=== PATIENT | female | born 1980 | race Caucasian/White ===

== ENCOUNTER 2018-02-24 13:59 | Emergency (ER) | payer MEDICAID, OTHER ==
[~2018-02-24] VITALS: Ht 165.1 cm; Wt 100.0 kg
[~2018-02-24 13:59] MED LIST: AMOX500T PO; TYLE3 PO; Z.0.BCPILL PO
[2018-02-24 14:11] VITALS: BP 139/88; PULSE 90; RESP 18; TEMP 97.9; O2SAT 100
[2018-02-24] MEDS ORDERED: ORTHTAB4 PO (14:26)
[2018-02-24] MEDS ORDERED: LIDOCAINE 1%/EPINEPHrine 1:100,000 SOLN 30 ML VIAL ONE (14:30)
[2018-02-24] MEDS ORDERED: LIDOCAINE 1%/EPINEPHrine 1:100,000 SOLN 20 ML VIAL INFIL ONE (14:30)
--- NOTE | 2018-02-24 14:37 | PD ---
HPI Chief Complaint: Injury Time Seen by Provider: 14:22 Travel History International Travel<30 days: No Contact w/Intl Traveler<30days: No Traveled to known affect area: No History of Present Illness HPI 37-year-old female presents emergency department with injury to the right little toe. Patient states she was getting into her jeep when she caught her left pinky toe causing it to possibly dislocate laterally. The patient was wearing flip-flops. Pain is now 8 out of 10. She has decreased range of motion. She denies numbness or tingling. No open wounds or abrasions noted. No significant swelling. Pain is 8 out of 10. Incident occurred 30 minutes prior to arrival. She has no known allergies. [facility] Past Medical History ?: Not Social History Alcohol Use: No Tobacco Use: Yes Substance Use: No Allergies-Medications (Allergen,Severity, Reaction): Coded Allergies: No Known Allergies (Verified Adverse Reaction, Unknown, 02/24/18) Reported Meds & Prescriptions Reported Meds & Active Scripts Active Reported Ortho Tri-Cyclen (Norgestimate-Ethinyl Estradiol) 0.18/0.215/0.25 mg-35 Mcg Tab 1 Tab PO DAILY Review of Systems Except as stated in HPI: all other systems reviewed are Neg General / Constitutional: No: Fever Eyes: No: Visual changes HENT: No: Headaches Cardiovascular: No: Chest Pain or Discomfort Respiratory: No: Shortness of Breath Gastrointestinal: No: Abdominal Pain Genitourinary: No: Dysuria Musculoskeletal: Positive: Arthralgias, Limited ROM, Pain (See history of present illness per) Skin: No Rash Neurologic: No: Weakness Psychiatric: No: Depression Endocrine: No: Polydipsia Hematologic/Lymphatic: No: Easy Bruising Physical Exam Narrative GENERAL: Patient appears in mild distress per SKIN: Warm and dry. Normal color. Normal turgor. No signs of trauma. HEAD: Atraumatic. Normocephalic. EYES: Pupils equal and round. No scleral icterus. No injection or drainage. ENT: No nasal bleeding or discharge. Mucous membranes pink and moist. Pharynx is clear. Airways patent NECK: Trachea midline. Supple and nontender. CARDIOVASCULAR: Regular rate and rhythm. RESPIRATORY: No accessory muscle use. Clear to auscultation. Breath sounds equal bilaterally. MUSCULOSKELETAL: Extremities without clubbing, cyanosis, or edema. Patient appears to have a lateral dislocation of the right pinky toe. NEUROLOGICAL: Awake and alert. No obvious cranial nerve deficits. Motor grossly within normal limits. Five out of 5 muscle strength in the arms and legs. Normal speech. PSYCHIATRIC: Appropriate mood and affect; insight and judgment normal. Data Data Last Documented VS Vital Signs Date Time Temp Pulse Resp B/P (MAP) Pulse Ox O2 Delivery O2 Flow Rate FiO2 02/24/18 14:11 97.9 90 18 139/88 (105) 100 Orders Orders Lidocai-Epi 1%-1:100,000 Inj (Xylocaine- (02/24/18 14:30) Foot, Complete (Plw8srs) (02/24/18 14:24) Ice/Cold Pack (02/24/18 14:24) Lidocai-Epi 1%-1:100,000 Inj (Xylocaine- (02/24/18 14:30) Splint Or Brace Apply/Monitor (02/24/18 15:04) [facility] Medical Decision Making Medical Screen Exam Complete: Yes Emergency Medical Condition: Yes Differential Diagnosis Right foot contusion. Right toe dislocation. Right toe fracture. Narrative Course Digital block is placed with good anesthetic effect. Toe is reduced. X-ray of the toe is ordered. X-ray shows fracture of the proximal phalanx of the fifth digit of the right foot with good alignment status post reduction. Joni taping is placed. Patient is placed in a postop shoe Patient should maintain joni taping and postop shoe until seen by director financial planning Patient referred to Dr. Pyle for follow-up. Diagnosis Primary Impression: Fracture of fifth toe, right, closed Qualified Codes: S92.501A - Displaced unspecified fracture of right lesser toe (s), initial encounter for closed fracture Referrals: Yolette Pyle [facility] Patient Instructions: General Instructions, Toe Fracture (ED) Additional Instructions: X-ray shows fracture of the proximal phalanx of the fifth digit of the right foot with good alignment status post reduction. Joni taping is placed. Patient is placed in a postop shoe Patient should maintain joni taping and postop shoe until seen by director financial planning Patient referred to Dr. Pyle for follow-up. Med/Other Pt SpecificInfo: Prescription(s) given Disposition: 01 DISCHARGE HOME Condition: Stable Mason Alvarado Feb 24, 2018 14:37
--- NOTE | 2018-02-24 15:01 | RADRPT ---
EXAM DATE: 02/24/2018 2:47 PM EDT AGE/SEX: 37 years / Female INDICATIONS: Post reduction right foot, 5th digit. CLINICAL DATA: This is the patient's initial encounter. Patient reports that signs and symptoms have been present for 1 day and indicates a pain score of 3/10. MEDICAL/SURGICAL HISTORY: None. None. COMPARISON: No prior [place] exams available for comparison. FINDINGS: There is an oblique fracture of the fifth proximal phalangeal bone. The rest the bones are unremarkab le CONCLUSION: Fifth proximal phalangeal bone fracture now in good alignment Electronically signed by: Umang Garcia MD 02/24/2018 3:00 PM EDT
[2018-02-24] MEDS ORDERED: HYDR-3516 PO (15:11)
== END 2018-02-24 15:29 | disposition home or self-care (01) ==
LOC: NEPK 13:59
DX: S92.511A Displaced fracture of proximal phalanx of right lesser toe(s), initial encounter for closed fracture (principal); V58.4XXA Person boarding or alighting a pick-up truck or van injured in noncollision transport accident, initial encounter; Z72.0 Tobacco use
CPT/HCPCS: 28660; 73630; 99284; L3260